=== PATIENT | female | born 1995 | race Caucasian/White ===

== ENCOUNTER 2018-10-08 02:36 | Emergency (ER) | payer OTHER ==
[2018-10-08 02:42] VITALS: BP 131/96
--- NOTE | 2018-10-08 02:44 | ED Physician Documentation ---
PD HPI URI - Stated complaint Stated Complaint: SORE THROAT - Chief complaint Chief Complaint: Heent - History obtained from History obtained from: Patient - History of Present Illness Timing - onset: How many days ago (2) Timing duration: Days (2) Timing details: Gradual onset Pain level max: 6 Pain level now: 5 Associated symptoms: Fever, Chills, Ear pain, Nasal congestion, Rhinorrhea, Sore throat, Dry cough. No: Chest pain, Dyspnea, NVD Contributing factors: Sick contact. No: Immunocompromised, Unimmunized Improves by: Rest, Medication (Motrin, last taken approximately 24 hours ago) Worsened by: Activity, Breathing Recently seen: Not recently seen Review of Systems Constitutional: reports: Fever GI: denies: Vomiting, Diarrhea : denies: Now EGA Skin: denies: Rash Neurologic: denies: Focal weakness, Numbness, Confused PD PAST MEDICAL HISTORY - Past Medical History Past Medical History: No - Past Surgical History Past Surgical History: No - Present Medications Home Medications: Ambulatory Orders Medication Instructions Recorded Confirmed Benzonatate [Tessalon Perle] 100 - 200 mg PO TID PRN #30 capsule 10/08/18 Cetirizine HCl/Pseudoephedrine 1 each PO BID PRN #30 tab.er.12h 10/08/18 [Zyrtec-D Tablet] Ibuprofen [Motrin] 800 mg PO Q8H PRN #30 tablet 10/08/18 - Allergies Allergies/Adverse Reactions: Allergies Allergy/AdvReac Type Severity Reaction Status Date / Time No Known Drug Allergies Allergy Verified 10/08/18 02:43 - Living Situation Living Arrangement: reports: At home - Social History Does the pt smoke?: No Does the pt have substance abuse?: No - Family History Family history: reports: Non contributory PD ED PE NORMAL - Vitals Vital signs reviewed: Yes - General General: Alert and oriented X 3, No acute distress, Well developed/nourished - HEENT HEENT: PERRL, Ears normal (Mild erythema to the bilateral tympanic membranes, no fluid. No bulging.), Moist mucous membranes, Pharynx benign - Neck Neck: Supple, no meningeal sign, No bony TTP, No adenopathy - Cardiac Cardiac: RRR, No murmur, Strong equal pulses - Respiratory Respiratory: No respiratory distress, Clear bilaterally - Abdomen Abdomen: Soft, Non tender, Non distended - Back Back: No CVA TTP - Derm Derm: Warm and dry, No rash - Extremities Extremities: No edema - Neuro Neuro: Alert and oriented X 3 - Psych Psych: Normal mood, Normal affect Results - Vitals Vitals: Vital Signs - 24 hr 10/08/18 02:39 Temperature 36.9 C Heart Rate 89 Respiratory 16 Rate Blood Pressure 131/96 H O2 Saturation 98 Oxygen O2 Source Room air - Labs Labs: Laboratory Tests 10/08/18 10/08/18 02:50 02:55 Influenza A (Rapid) Negative Influenza B (Rapid) Negative Group A Strep Rapid Negative PD MEDICAL DECISION MAKING - ED course Complexity details: reviewed results, re-evaluated patient, considered differential, d/w patient ED course: Patient is well-appearing, nontoxic. Afebrile. Appears to have a viral upper respiratory infection. Rapid strep is negative. Influenza is negative. Given dexamethasone and Motrin. Will place on decongestants for home. Patient counseled regarding signs and symptoms for which I believe and urgent re- evaluation would be necessary. Patient with good understanding of and agreement to plan and is comfortable going home at this time This document was made in part using voice recognition software. While efforts are made to proofread this document, sound alike and grammatical errors may occur. Departure - Departure Disposition: 01 Home, Self Care Clinical Impression: Viral URI Condition: Good Instructions: ED URI Viral Follow-Up: [facility] Carrizales [Provider Group] - Within 1 week Prescriptions: Benzonatate [Tessalon Perle] 100 - 200 mg PO TID PRN #30 capsule PRN Reason: Cough Cetirizine HCl/Pseudoephedrine [Zyrtec-D Tablet] 1 each PO BID PRN #30 tab.er.12h PRN Reason: nasal congestion Ibuprofen [Motrin] 800 mg PO Q8H PRN #30 tablet PRN Reason: PAIN &/OR FEVER Comments: Drink plenty of fluids and rest. Return if you worsen. This will likely last another 5-7 days.
[2018-10-08] MEDS ORDERED: DEXAMETHASONE 10 MG/ML VIAL PO STA (02:53)
[2018-10-08] MEDS ORDERED: IBUPROFEN 800 MG TABLET PO STA (02:53)
== END 2018-10-08 03:29 | disposition home or self-care (01) ==
LOC: ED 02:36
DX: J06.9 Acute upper respiratory infection, unspecified (principal); B97.89 Other viral agents as the cause of diseases classified elsewhere
CPT/HCPCS: 87070; 87275; 87276; 87430; 99283; A9270